=== PATIENT | male | born 1970 | race Caucasian/White ===

== ENCOUNTER 2020-10-28 13:12 | Emergency (ER) | payer OTHER ==
[~2020-10-28] VITALS: Ht 177.8 cm; Wt 113.4 kg
[2020-10-28] MEDS ORDERED: NOHOMEMEDICATIONS (13:20)
[2020-10-28 13:34] LABS: ABSOLUTE BASOPHILS 0.1 thou/uL (0.0-0.2); ABSOLUTE EOSINOPHILS 0.1 thou/uL (0.0-0.7); ABSOLUTE LYMPHOCYTES 1.8 thou/uL (0.8-5.3); ABSOLUTE MONOCYTES 0.7 thou/uL (0.0-1.2); ABSOLUTE NEUTROPHILS 5.9 thou/uL (1.6-8.1); BASOPHILS 0.9 %; EOSINOPHILS 1.5 %; HEMATOCRIT 44.7 % (42.0-52.0); HEMOGLOBIN 15.8 gm/dL (14.0-18.0); LYMPHOCYTES 20.5 %; MCH 30.9 pg (26.0-34.0); MCHC 35.3 g/dL (28.0-37.0); MCV 87.6 fL (80.0-100.0); MPV 8.6 fl. (7.2-11.1); NUCLEATED RBCS 0 /100WBC; PLATELET COUNT* 270 thou/uL (150-400); POLYS 69.1 %; RDW-CV 13.6 % (10.5-14.5); WBC 8.6 thou/uL (4.0-11.0)
[2020-10-28 13:41] LABS: CALCIUM 8.9 mg/dL (8.5-10.1); CREATININE 1.2 mg/dL (0.6-1.3); POTASSIUM 4.1 mmol/L (3.5-5.1)
[2020-10-28 13:45] LABS: ALBUMIN 3.6 g/dL (3.4-5.0); TOTAL BILIRUBIN 0.4 mg/dL (<0.1-1.0); TOTAL PROTEIN 7.6 g/dL (6.4-8.2)
[2020-10-28 15:17] VITALS: BP 162/93
--- NOTE | 2020-10-29 14:38 | EKG ---
[place] [address] ELECTROCARDIOGRAM REPORT Name: JOSE ORTA Room: [facility]#: [id number] Admission: 10/28/20 Attend Phys: Discharge: 10/28/20 Date of : 74 Date of Service: 10/28/20 1321 Report #: [id number] THIS REPORT FOR: //name// [facility] ED Test Date: 2020-10-28 Test Time: 13:21:07 Pat Name: JOSE ORTA Department: Room: Gender: Signal Helper: -MEDIC STUDENT : 1970 Requested By: Colin Go Order Number: [id number] MD: Gordo Beal Measurements Intervals [place] Rate: 97 P: 52 NV: 139 QRS: 8 QRSD: 100 T: 27 QT: 338 QTc: 430 Interpretive Statements Sinus rhythm Baseline wander in lead(s) II,III,aVF No previous ECG available for comparison Electronically Signed On 10-29-2020 14:38:02 CDT by Gordo Beal [email or web address] <ELECTRONICALLY SIGNED> By: Gordo Beal MD, [facility] 10/29/20 1438 1321 1321 Gordo Beal MD, [facility] /EPI
== END 2020-10-28 15:19 | disposition home or self-care (01) ==
LOC: M.ERS 13:12
PROVIDERS: Family Medicine
DX: R42 Dizziness and giddiness (principal); R55 Syncope and collapse